=== PATIENT | female | born 1995 | race Caucasian/White ===

== ENCOUNTER 2017-11-27 13:13 | Emergency (ER) | payer BC | END 2017-11-27 13:48 | disposition home or self-care (01) | LOC: FTE 13:13 → E/R 13:48 | DX: M25.562 Pain in left knee (principal) | CPT/HCPCS: 99282; Z7502 ==

== ENCOUNTER → 2018-06-01 | Outpatient (CLI) | payer BC | END | disposition home or self-care (01) | LOC: HKI 13:23 | DX: M76.52 Patellar tendinitis, left knee (principal) | CPT/HCPCS: 72100; 73564-LT ==

== ENCOUNTER 2018-10-16 16:52 | Emergency (ER) | payer BC ==
[2018-10-16] MEDS: LIDOCAINE 1% (MPF) 5 ML VIAL INFIL (17:51)
== END 2018-10-16 19:35 | disposition home or self-care (01) ==
LOC: FTE 16:52
DX: S61.320A Laceration with foreign body of right index finger with damage to nail, initial encounter (principal); W23.0XXA Caught, crushed, jammed, or pinched between moving objects, initial encounter; Y92.9 Unspecified place or not applicable
CPT/HCPCS: 99282; Z7502

== ENCOUNTER 2019-03-29 11:25 | Emergency (ER) | payer BC | END 2019-03-29 12:19 | disposition home or self-care (01) | LOC: FTE 11:25 | DX: J02.9 Acute pharyngitis, unspecified (principal) | CPT/HCPCS: 99283; Z7502 ==